=== PATIENT | male | born 1980 | race Two or more races ===

== ENCOUNTER 2025-08-21 09:01 | Day surgery (SDC) | payer OTHER ==
[~2025-08-21] VITALS: Ht 182.9 cm; Wt 77.1 kg
[~2025-08-21 09:01] MED LIST: BUPIVACAINE 0.25% INJ 50ML VIAL ONE; GLYCOPYRROLATE 0.2 MG/ML 1ML VIAL ONE; KETAMINE 50mg/ML 1ml syringe ONE; KETOROLAC TROMETH 30 MG/ML 1ML VIAL ONE; LIDOCAINE 2% (LOCAL ANESTH.) PF 5ml SDV ONE; LIDOCAINE HCL 2% TOP JELLY 5ML TOP ONE; NAPR220C PO; ONDANSETRON HCL 4 MG/2 ML VIAL ONE; PROPOFOL 10 MG/ML 20 ML IV ONE; fentaNYL CITRATE 100 MCG/2 ML VL ONE
[2025-08-21] MEDS ORDERED: CELECOXIB 100 MG CAP PO ONE (09:15)
[2025-08-21] MEDS ORDERED: GABAPENTIN 300 MG CAP PO ONE (09:15)
[2025-08-21] MEDS: ACETAMINOPHEN IV 1000 MG/100ML (10MG/ML) IV ONE (09:28)
[2025-08-21] MEDS ORDERED: BUPIVACAINE 0.5% P/F INJ 10 ML VIAL ONE (09:41)
[2025-08-21] MEDS: ceFAZolin 1GM/50ML 100 ML IV ONE (10:30)
[2025-08-21] MEDS ORDERED: ESMOLOL HCL 10 ML IV ONE (11:29)
--- NOTE | 2025-08-21 12:57 | DVHOP2 ---
Operative Report - 2 Report Details Date: 08/21/25 Preop Diagnosis: Left knee anterior cruciate ligament tear with bucket-handle lateral meniscus tear with severe lateral compartment chondromalacia Postop Diagnosis: Left knee anterior cruciate ligament tear with bucket-handle lateral meniscus tear with grade 4 lateral compartment chondromalacia Surgeon: El Low MD Fireman: Mouna Stanton Physician Fireman Anesthesiologist: Angel Locke CRNA Anesthesia: General, Regional Implant: Arthrex tightrope x2, fiber stitch x3, platelet rich plasma with bio cartilage, internal brace x1 Consent: The patient was informed of the risks and benefits of the procedure. These include but are not limited to complications of anesthesia, postoperative infection, incomplete relief of symptoms, recurrence of symptoms, damage to blood vessels, nerves and tendons, deep venous thrombosis, pulmonary embolism and possible need for repeat surgery in the future. Complications: None Estimated Blood Loss: Less than 10 mL Indications for Surgery: The patient is a 45-year-old male who presented to the clinic with a history of left knee pain. Clinical and radiological evaluation demonstrated complete ACL tear with bucket-handle lateral meniscus tear. He was aware of his ACL tear since five or six years. However he continued with his normal activities and eventually had locking and clicking and the pain. Nonoperative and operative management options were discussed. It was mentioned that he does have significant chondromalacia of the lateral side. Benefits, risks and treatment alternatives of the surgery were discussed. Different cartilage anabaptism techniques were discussed with him. Pros and cons were discussed as well. Surgical complications including neurovascular injury, infection, arthrofibrosis, loss of limb or life were discussed. He decided to proceed with the surgical option. Name of Procedure Performed Left knee arthroscopy, ACL reconstruction using triple folded allograft, lateral meniscus repair, chondroplasty of the lateral compartment along with bio cartilage and platelet rich plasma Procedure Details Procedure Details: Procedure Details: The patient was identified in the preoperative holding area and the surgical site was marked. The consent was verified. The patient was brought into the operating room and placed supine on the operating table. General anesthesia was administered. Intravenous antibiotics were given. The extremity was prepped and draped in the usual sterile manner. All the bony prominences were appropriately padded. The extremity was examined under anesthesia and was found to have positive anterior drawer and Romy test with no endpoint. Pivot shift test was also positive. The extremity was prepped and draped in the usual sterile manner. A timeout was called to confirm the identity of patient, the nature of surgery, the availability of implants and x-rays and allergies to medications. Based on exam and MRI findings, an allograft was opened at the back table. This was a tibialis anterior allograft with a folded diameter of 10 mm. This was prepared with help of FiberWire stitches on both ends. This was placed on the Graftmaster under tension after mounting it on an tightrope on both sides. Bacitracin ointment was applied. A standard anterior portal established. A 30 degree scope was inserted a standard anteromedial portal established, a probe was inserted and the findings are as follows 1. Complete ACL tear 2. Grade IV chondromalacia on the lateral femoral condyle, diffuse, lateral half of the condyle 3. Intact medial meniscus 4. Lateral meniscus tear, bucket-handle, with flipped portion in the notch 5. Cartilaginous loose bodies 6. Significant chondromalacia in the patellofemoral joint, normal tracking. 7. Large medial patellofemoral osteophyte Meniscus: The lateral meniscus was probed. This was a bucket-handle tear and was flipped into the notch. This was reduced. Partial meniscectomy of the white-white zone was carried out. The rest of the meniscus was repaired using three vertical mattress stitches. Excellent fixation was noted. This was used as per manufacture's guidelines. The 1st anchor was deployed, the 2nd anchor was deployed and the knotless suture mechanism was activated for excellent fixation. Preparation of intercondylar notch: The remaining ACL remnant was removed with the help of a shaver. A notchplasty was performed with a bur. 3 to 4 mm of bone was removed to make way for the new graft. The footprint of the ACL site was also debrided. Preparation of femoral tunnel: An outside in jig was inserted. This was positioned at the center of the ACL footprint. A guidewire was inserted. Next a reamer was inserted. This was a retroreamer from [employer]. A 20 mm tunnel was drilled. The scope was inserted into the medial portal for this step and the integrity of the lateral and posterior wall was ensured. Preparation of tibiotalar: A tibial tunnel jig was inserted. A guidepin was inserted at the center of the ACL footprint remnant. This was approximately 7 mm anterior to the PCL fibers. Next a guide pin was inserted. Next a 10 mm reamer was inserted. Next, a loop was inserted from the femoral side and retrieved through the tibial tunnel. Passage of graft and fixation: The graft was now brought into the operative field and the sutures were passed from the tibial side to the femoral side. The button was visualized entering the femoral tunnel with the scope on the medial border. The button was now flipped. The position was ensured by tugging on the tibial side and by cycling the knee. This was a very secure fixation. Next the adjustable loop was pulled from the lateral side and the graft was inserted into the femoral tunnel. The graft was marked at 20 mm with 0 Vicryl and that was completely inside the tunnel ensuring at least 20 mm of the tunnel inside the graft. The tibial side was now fixed with the button on that side. Excellent tensioning was noted. Graft isometry was excellent. The internal brace was affixed to the button. The lateral compartment was now addressed. The water was drained. Platelet rich plasma was created by spinning it in the appropriate range machine. Blood was drawn from the patient. This was mixed with bio cartilage and this was inserted into the lateral compartment after drying the knee. Good coverage of bicondylar area was noted. Irrigation was given. The skin incisions were closed with 2-0 Vicryl and 3-0 Monocryl. Sterile dressing was applied. A hinged range of motion brace set at -10 to 70 degrees was applied. Disposition: Good, the patient was extubated and taken to recovery without any complication Plan: Toe-touch for now. To follow-up in 1 to 2 weeks in the clinic. May range his knee as per brace settings. Condition Good Disposition Home EL LOW MD Aug 21, 2025 12:57
[2025-08-21] MEDS ORDERED: fentaNYL CITRATE 100 MCG/2 ML VL ONE (12:59)
[2025-08-21 13:28] VITALS: TEMP 97; O2SAT 100
[2025-08-21] MEDS ORDERED: fentaNYL CITRATE 100 MCG/2 ML VL IV PRN (13:45)
[2025-08-21] MEDS ORDERED: NALOXONE HCL 0.4 MG/ML VIAL IV PRN (13:45)
[2025-08-21] MEDS ORDERED: HYDROmorphone HCL 2 MG/ML VL/or syr IV PRN (13:45)
[2025-08-21] MEDS ORDERED: FLUMAZENIL 0.1 MG/ML INJ 10ML MDV IV PRN (13:45)
[2025-08-21] MEDS ORDERED: ONDANSETRON HCL 4 MG/2 ML VIAL IV PRN (13:45)
[2025-08-21] MEDS ORDERED: hydrALAZINE HCL 20 MG/ML VL IV PRN (13:45)
[2025-08-21 14:13] VITALS: BP 126/73; PULSE 54; RESP 14; O2SAT 98
--- NOTE | 2025-08-21 16:45 | DVH ---
EXAM: XY L KNEE 2V XRAY HISTORY: ACL REPAIR COMPARISON: None TECHNIQUE: Fluoroscopic AP view of the left knee was performed. Fluoro time 4.5 seconds. Radiation dose 0.16 mGy. FINDINGS/IMPRESSION: Postoperative changes of ACL repair.
--- NOTE | 2025-08-21 17:23 | DVH ---
C-ARM FLUOROSCOPY: PROCEDURE: ACL repair FLUOROSCOPY TIME: 4.5 cm Air Kerma: 0.16 mgy FINDINGS: No operative images included with the study. IMPRESSION: 1. Please refer to surgical report for detailed findings.
== END 2025-08-21 14:25 | disposition home or self-care (01) ==
LOC: SUR 09:01
PROVIDERS: ATTEND Orthopaedic Surgery Sports Medicine
DX: S83.512A Sprain of anterior cruciate ligament of left knee, initial encounter (principal); S83.252A Bucket-handle tear of lateral meniscus, current injury, left knee, initial encounter; M94.262 Chondromalacia, left knee; M23.42 Loose body in knee, left knee; Z79.899 Other long term (current) drug therapy; Z90.49 Acquired absence of other specified parts of digestive tract; Z98.890 Other specified postprocedural states; Z87.891 Personal history of nicotine dependence; X58.XXXA Exposure to other specified factors, initial encounter; Y93.89 Activity, other specified; Y92.89 Other specified places as the place of occurrence of the external cause; Y99.8 Other external cause status
CPT/HCPCS: 29882; 29888; 73560; C1713; C1762; J0169; J0690; J1100; J1885; J2003; J2405; J2704; J3010; J3490; 76000; J0131